=== PATIENT | male | born 1960 | race Caucasian/White ===

== ENCOUNTER → 2024-07-01 | Outpatient (CLI) | payer OTHER ==
[2024-07-01 07:22] LABS: Basophils # (auto) 0.1 10 ^3/uL (0-0.2); Basophils % (auto) 1.1 % (0.0-2.0); Eosinophils # (auto) 0.5 10 ^3/uL (0-0.8); Eosinophils % (auto) 7.8 % (0.0-7.0); Hematocrit 46.8 % (41.0-53.0); Hemoglobin 16.4 g/dL (13.5-17.5); Lymphocytes % (auto) 32.2 % (10.0-50.0); Mean Corpuscular Hemoglobin 32.2 pg (28.0-32.0); Mean Corpuscular Hgb Conc. 35.1 g/dL (32.0-36.0); Mean Corpuscular Volume 91.8 fL (80.0-100.0); Monocytes # (auto) 0.4 10 ^3/uL (0-1.3); Monocytes % (auto) 6.5 % (0.0-12.0); Neutrophils # (auto) 3.3 10 ^3/uL (1.6-8.6); Neutrophils % (auto) 52.4 % (37.0-80.0); Nucleated Red Blood Cells % 0.3 %; Platelet Count (auto) 292 10^3/uL (140-450); White Blood Cell 6.4 10^3/uL (4.4-10.8)
[2024-07-01 07:31] LABS: Alanine Aminotransferase 18 U/L (7-40); Albumin 4.7 g/dL (3.2-4.8); Alkaline Phosphatase 62 U/L (46-116); Anion Gap 8 (5-15); Aspartate Aminotransferase 18 U/L (13-40); BUN/Creatinine Ratio 12.1 (10.0-20.0); Blood Urea Nitrogen 12 mg/dL (9-23); Carbon Dioxide 30 mmol/L (20-31); Chloride 102 mmol/L (98-107); Potassium 3.6 mmol/L (3.5-5.1); Sodium 140 mmol/L (136-145); Total Protein 7.5 g/dL (5.7-8.2)
[2024-07-01 07:32] LABS: Bilirubin, Total 0.9 mg/dL (0.2-1.0)
[2024-07-01 07:38] LABS: Cholesterol 241 mg/dL (< 200); Glucose 117 mg/dL (74-106); HDL Cholesterol 37 mg/dL (40-59); Triglycerides 457 mg/dL (< 150)
[2024-07-02 08:07] LABS: PSA Free 1.37 ng/mL; Prostate Specific Antigen 5.7 ng/mL (0.0-4.0)
[2024-07-04 17:07] LABS: D001-IgE D pteronyssinus <0.10 kU/L (Class 0); E001-IgE Cat Hair/Dander <0.10 kU/L (Class 0); G002-IgE Bermuda Grass <0.10 kU/L (Class 0); IgE Cedar, Mountain <0.10 kU/L (Class 0); IgE Cottonwood <0.10 kU/L (Class 0); IgE Elm, American <0.10 kU/L (Class 0); IgE Johnson Grass <0.10 kU/L (Class 0); IgE Mouse Urine <0.10 kU/L (Class 0); IgE Mugwort 0.16 kU/L (Class 0/I); IgE Ragweed, Short 1.39 kU/L (Class II); IgE Rye, Perennial <0.10 kU/L (Class 0); Immunoglobulin E 99 IU/mL (6-495); M002-IgE Cladosporium herbaru <0.10 kU/L (Class 0); M003-IgE Aspergillus fumigatu <0.10 kU/L (Class 0); T007-IgE Oak, White <0.10 kU/L (Class 0); T009-IgE Olive Tree <0.10 kU/L (Class 0); T019-IgE Mimosa/Acacia <0.10 kU/L (Class 0); W011-IgE Thistle, Russian <0.10 kU/L (Class 0)
== END | disposition home or self-care (01) ==
LOC: LAB 06:44
PROVIDERS: ATTEND Nurse Practitioner Family
DX: E78.5 Hyperlipidemia, unspecified (principal); R35.1 Nocturia; J30.89 Other allergic rhinitis
CPT/HCPCS: 36415; 80053; 80061; 82785; 84153; 84154; 84443; 85025; 86003

== ENCOUNTER 2024-10-15 08:56 | Day surgery (SDC) | payer OTHER ==
[2024-10-11 10:21] LABS: Hematocrit 45.1 % (41.0-53.0); Hemoglobin 16.1 g/dL (13.5-17.5); Mean Corpuscular Hemoglobin 32.5 pg (28.0-32.0); Mean Corpuscular Volume 91.3 fL (80.0-100.0); Nucleated Red Blood Cells % 0.1 %
[2024-10-11 10:30] LABS: INR 0.97 (0.9-1.15); Partial Thromboplastin Time 25.9 SEC (24.5-34.5); Prothrombin Time 10.3 sec (9.3-11.8)
[2024-10-11 11:11] LABS: Alanine Aminotransferase 19 U/L (7-40); Albumin 4.4 g/dL (3.2-4.8); Alkaline Phosphatase 62 U/L (46-116); Anion Gap 10 (5-15); BUN/Creatinine Ratio 15.8 (10.0-20.0); Bilirubin, Total 0.7 mg/dL (0.2-1.0); Blood Urea Nitrogen 16 mg/dL (9-23); Calcium 9.8 mg/dL (8.7-10.4); Carbon Dioxide 28 mmol/L (20-31); Chloride 103 mmol/L (98-107); Potassium 3.6 mmol/L (3.5-5.1); Sodium 141 mmol/L (136-145); Total Protein 6.8 g/dL (5.7-8.2)
[2024-10-11 11:17] LABS: Glucose 163 mg/dL (74-106)
[~2024-10-15] VITALS: Ht 165.1 cm; Wt 81.6 kg
[~2024-10-15 08:56] MED LIST: ALBUAER3 IN; CHOL20007 OR; MULT1TAB28 PO; OMEG1400 PO
[2024-10-15 09:11] VITALS: TEMP 97.6
[2024-10-15] MEDS: fentaNYL CITRATE 100 MCG/2 ML VL ONE (09:37)
[2024-10-15] MEDS: MIDAZOLAM HCL 2MG/2ML 2ml VIAL (1mg/ml) ONE (09:37)
[2024-10-15 09:55] VITALS: PULSE 64; RESP 10; O2SAT 94
[2024-10-15 10:25] VITALS: BP 111/64; PULSE 62; RESP 16; O2SAT 95
--- NOTE | 2024-12-09 15:41 | DVHNC2 ---
Procedure - Date of service: October 15, 2024 Procedure performed by: Tami Cobos MD Referring provider: Dr Dahl Procedure performed: 1. Colonoscopy with cold biopsy polypectomy with moderate sedation Pre-procedure diagnosis: 1. Chronic constipation 2. Colorectal cancer screening Postprocedure diagnosis 1. Diverticulosis 2. Small ascending 3. internal hemorrhoids Indications for procedure: The patient is a 64-year-old male with chronic constipation who presents for outpatient colonoscopy for screening as well as for his constipation Medications used: Moderate sedation was given in incremental doses, fentanyl and Versed IV: Details of the procedure: Informed consent was obtained after risks, benefits, and alternatives were discussed at length with the patient. The patient gave consent to the procedure as well as the medication used for sedation. The patient was placed in the left lateral decubitus position. Digital rectal exam showed internal hemorrhoids. an Olympus variable torsion colonoscope was inserted into the rectum advanced to the cecum. The cecum was identified by the ileocecal valve and the appendiceal orifice the scope was then withdrawn. The prep was good with only small amounts of stool. There were no large polyps, masses, strictures, or arteriovenous malformation seen. There was one small ascending colon polyp removed with cold biopsy polypectomy forceps. The patient had diverticulosis. Retroflexion showed internal hemorrhoids and more than 6 minutes of withdrawal time was noted. The patient tolerated the procedure well. Impression: 1. Small ascending colon polyp removed with cold biopsy forceps 2. Diverticulosis 3. Small internal hemorrhoids Recommendations: 1. Follow up with procedure and pathology results in the GI clinic 2. High-fiber diet 3. Consider stool softeners and/or laxative for the patient's symptoms 4. Follow up with primary care physician 5. Repeat colonoscopy in five years unless otherwise indicated. I would like to thank Dr. Dahl for this referral TAMI COBOS MD Dec 09, 2024 15:41
== END 2024-10-15 10:35 | disposition home or self-care (01) ==
LOC: GI 08:56
PROVIDERS: ATTEND Specialist
DX: K59.09 Other constipation (principal); K63.5 Polyp of colon; K57.30 Diverticulosis of large intestine without perforation or abscess without bleeding; K64.8 Other hemorrhoids; J45.909 Unspecified asthma, uncomplicated; Z79.899 Other long term (current) drug therapy; Z98.890 Other specified postprocedural states
CPT/HCPCS: 36415; 80053; 85025; 85610; 85730; 88305; J2250; J3010; 45380; 99152

== ENCOUNTER 2025-01-17 08:13 | Outpatient (CLI) | payer OTHER ==
[2025-01-17 08:47] LABS: Alanine Aminotransferase 19 U/L (7-40); Albumin 4.4 g/dL (3.2-4.8); Alkaline Phosphatase 67 U/L (46-116); Anion Gap 9 (5-15); BUN/Creatinine Ratio 9.3 (10.0-20.0); Blood Urea Nitrogen 10 mg/dL (9-23); Calcium 9.1 mg/dL (8.7-10.4); Carbon Dioxide 30 mmol/L (20-31); Chloride 104 mmol/L (98-107); Glucose 101 mg/dL (74-106); Potassium 3.9 mmol/L (3.5-5.1); Sodium 143 mmol/L (136-145); Total Protein 7.2 g/dL (5.7-8.2)
[2025-01-17 08:48] LABS: Bilirubin, Total 1.0 mg/dL (0.2-1.0); Creatine Kinase IFCC 71 U/L (46-171)
== END 2025-01-17 17:00 | disposition home or self-care (01) ==
LOC: LAB 08:13
PROVIDERS: ATTEND Internal Medicine
DX: E78.2 Mixed hyperlipidemia (principal)
CPT/HCPCS: 36415; 80053; 82550

== ENCOUNTER 2025-02-20 08:12 | Outpatient (CLI) | payer OTHER ==
[2025-02-20 09:10] LABS: Blood Urea Nitrogen 13.0 mg/dL (9-23)
== END 2025-02-20 17:00 | disposition home or self-care (01) ==
LOC: LAB 08:12
PROVIDERS: ATTEND Urology
DX: R35.1 Nocturia (principal)
CPT/HCPCS: 36415; 82565; 84520